=== PATIENT | female | born 1960 | race Two or more races ===

== ENCOUNTER 2017-02-14 08:18 | Inpatient (IN) | payer BC ==
[~2017-02-14] VITALS: Ht 149.9 cm; Wt 60.5 kg
[~2017-02-14 08:18] MED LIST: ALBU0.08 NEB; ATOR10TA15 PO; FOLI1TAB6 PO; GARL1CAP6 PO; MONT10TA4 PO; OMEGCAP PO
--- NOTE | 2017-02-14 08:27 | PD.OP ---
Operative Report Date of Surgery: Feb 14, 2017 Preoperative Diagnosis: (1) Intramural leiomyoma of uterus (2) Subserosal leiomyoma of uterus (3) Enlarged uterus (4) Pelvic and perineal pain Postoperative Diagnosis: (1) Intramural leiomyoma of uterus (2) Subserosal leiomyoma of uterus (3) Enlarged uterus (4) Pelvic and perineal pain (5) Severe endometriosis (6) Intestinal adhesions (7) Pelvic peritoneal adhesions, female Procedure: 1. attempted laparoscopic supracervical hysterectomy -- had to change to open procedure due to frozen pelvis 2. supracervical abdominal hysterectomy 3. bilateral salpingo-oophorectomy 4. extensive lysis of adhesions Anesthesia: General Surgeon: Christa Burkett International Account Executive(s): OR staff Operation and Findings: IVF: 3500 ml of LR + IV antibiotics given prior to surgery + 2 Units of PRBCs + Methylene blue given during surgery UO: 800 ml EBL: 500 ml Findings: 1. 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 extensive adhesions involving omentum and anterior abdominal wall 3. extensive adhesions involving the bowel and the pelvic organs 4. both adnexa were embedded in pelvic side fried Specimens: uterus, tubes, ovaries Complications: left ureter was punctured with needle, Urologist was called to evaluate it, stent was recommend to prevent any complications Condition: stable Description of the procedure: The risks, benefits and alternatives of the procedure were discussed with the patient. Informed consent was obtained after questions were answered. The patient was then transferred to the operating room with her IV running. Antibiotics were given prior to surgery. She was placed in the supine position and was given general anesthesia without difficulties or complications. The patient was placed in the dorsal lithotomy position and was prepped and draped in the usual sterile fashion . Attention was then turned to the patient's pelvis. A bivalve speculum was placed inside the patient's vagina. The anterior aspect of the cervix was grasped with a single tooth tenaculum for manipulation. The cervix was carefully dilated and electrocauterized with the Bovie. A uterine manipulator was placed inside the uterus for manipulation. The rest of the instruments were removed from the patient's vagina. The surgeon changed gloves and attention was then turned to the patient's abdomen. Next, a vertical umbilical incision was made with the scalpel. A 5mm trocar was placed inside the abdomen while observing with the camera. Extensive adhesions were noted in the patient's abdomen. Her pelvis was noted to be "frozen" due to overwhelming adhesions from suspected endometriosis and her previous section. The decision was then made to proceed with an abdominal hysterectomy.The uterine manipulator was removed and the patient's position was changed to supine. A Pfannenstiel skin incision was then made with the scalpel. The incision was extended to the fascia with the Bovie. The fascia was incised in the midline with a scalpel. The fascial incision was then extended sharply with Long scissors. Next, the rectus muscles were in the midline with a hemostat and the peritoneum was identified and entered bluntly. Adhesions involving the omentum and abdominal wall needed to be cut in order to enter the abdomen. A [place] retractor was placed inside the patient's abdomen. Care was taken to place moist laps under the blades. Extensive lysis of adhesions was necessary in order to create tissue planes and be able to introduce blades. More lysis of adhesions was needed in order to continue with the procedure. The bowel was carefully packed away with moist laparotomy sponges. A bladder blade was also introduced inside the pelvic cavity. The right round ligament was identified, doubly clamped, transected and suture ligated with 0-Vicryl. Good hemostasis was noted. The right fallopian tube and ovary were noted to be embedded in the right pelvic side wall. After cutting the adhesions, the IP was clamped, cut and suture ligated. Hemostasis was achieved. The left uterine-ovarian ligament was then doubly clamped, transected and suture ligated with 0-Vicryl times two. After extensive lysis of adhesions, the tissues along the left and right lower uterine segment were serially doubly clamped, transected and suture ligated with 0-Vicryl times two. Good hemostasis was noted. The uterus was transected at the utero-cervical junction with the Bovie and was sent to pathology. The left adnexa was also embedded in the left pelvic side wall. More lysis of adhesions was needed in order to be able to doubly clamped, transect and ligate the left Infundibulopelvic ligament. At this time, the ureters were identified and noted to be away from the surgical sites. However, the left ureter was noted to have a needle puncture. Urology was intra-operatively consulted. Dr Collazo evaluated the left ureter and, after closing, he performed a cystoscopy and placed a stent in the left ureter in order to prevent any complications. Good hemostasis was noted at all surgical sites. However, throughout the surgery the adhesions cut oozed blood. It was then decided to give the patient 2 units of PRBCs because her blood pressure was low. The endocervix was electrocauterized using the Bovie. The edges of the cervical tissues and the peritoneum were stitched together with running, locked stitches of 0-Vicryl. Excellent hemostasis was noted at all the surgical sites and pedicles. Copious irrigation was done. Hemostatic powder was placed over the cervix and cul de sac. All the instruments were removed from the patient's pelvis and vagina. The instrument and the lap count were correct times three. The peritoneum was closed with running stitches of 2-0 Vicryl. The rectus muscles were reapproximated with running stitches of 0-Vicryl. The fascia was reapproximated with running stitches of 0-PDS. The subcutaneous tissues were copiously irrigated and reapproximated with one layer of running stitches using 2-0 Vicryl. The skin was reapproximated with running stitches of Monocryl on a curved needle. Mastisol and steri strips were placed over the incision. The patient was successfully extubated and taken to PACU in stable condition. Since the patient had to be open, arrangements were made with [facility] to admit the patient to [facility] for post op care. Note: I discussed surgical findings and surgical procedures with patient's family members. Their questions were answered. They verbalized understanding and agreement to the procedures done. Christa Burkett MD Feb 14, 2017 08:27
[2017-02-14] MEDS ORDERED: LACTATED RINGER'S 1000 ML IV PRN (08:45)
[2017-02-14] MEDS ORDERED: INSULIN HUMAN REGULAR 1,000 UNITS/10 ML VIAL SQ PRN (08:45)
[2017-02-14] MEDS ORDERED: CHLORHEXIDINE GLUCONATE 2 % 1 PACK (2 CLOTHS) TOPICAL PRN (08:45)
[2017-02-14] MEDS ORDERED: ceFAZolin 2 GM PREMIX 50 ML IV SCH (08:45)
[2017-02-14] MEDS ORDERED: METOPROLOL TARTRATE 25 MG TAB PO PRN (08:45)
[2017-02-14] MEDS ORDERED: SODIUM CHLORID 0.9% 500 ML IV PRN (08:45)
[2017-02-14] MEDS: POVIDONE IODINE 5% (ANTISEPSIS KIT) 4 APPLICATIONS EACH NARE PRN ×2 (08:47→09:32)
[2017-02-14] MEDS ORDERED: VENTAER INH (08:58)
[2017-02-14 09:02] VITALS: BP 124/79; PULSE 87; RESP 16; TEMP 98.1; O2SAT 100
[2017-02-14] MEDS ORDERED: oxyCODONE/ACETAMINOPHEN 5 MG/325 MG TAB PO PRN ×2 (10:00→19:30)
[2017-02-14] MEDS ORDERED: PHENYLEPH/NS 1000 MCG/10 ML SYR IV ONE (12:15)
[2017-02-14] MEDS ORDERED: PROPOFOL 200 MG/20 ML AMP IV ONE (12:15)
[2017-02-14] MEDS ORDERED: ONDANSETRON HCL 4 MG/2 ML VIAL IV PUSH ONE (12:15)
[2017-02-14] MEDS ORDERED: ACETAMINOPHEN 1000 MG/100 ML VIAL IV ONE (14:07)
[2017-02-14] MEDS ORDERED: fentaNYL CITRATE 250 MCG/5 ML AMP ONE ×2 (14:07→16:55)
[2017-02-14] MEDS ORDERED: MIDAZOLAM HCL 2 MG/2 ML VIAL ONE (14:07)
[2017-02-14] MEDS ORDERED: BUPIVACAINE HCL PF 0.5% 30 ML VIAL ONE (14:07)
[2017-02-14] MEDS ORDERED: SODIUM CHLORIDE 0.9% 20 ML VIAL ONE (14:07)
[2017-02-14] MEDS ORDERED: VASOPRESSIN INJ 20 UNITS/ML VIAL ONE (14:07)
[2017-02-14] MEDS ORDERED: FAMOTIDINE 20 MG/2 ML VIAL ONE (14:08)
[2017-02-14] MEDS ORDERED: RESP: ALBUTEROL 2.5 MG/3 ML NEB (SCH) ONE (14:12)
[2017-02-14] MEDS ORDERED: HYDROmorphone HCL PF 2 MG/ML VIAL ONE (14:57)
[2017-02-14] MEDS ORDERED: SUGAMMADEX SODIUM 200 MG/2 ML VIAL IV PUSH ONE ×2 (14:57)
[2017-02-14] MEDS ORDERED: METHYLENE BLUE 10 MG/ML VIAL OTHER ONE (15:13)
[2017-02-14] MEDS ORDERED: MICROFIBRILLAR COLLAGEN HEMOSTAT 1 GM PKT ONE (16:06)
[2017-02-14 17:41] LABS: REVIEW FLAG FINAL
[2017-02-14] MEDS ORDERED: HYDROmorphone HCL PF 2 MG/ML VIAL IV PRN (19:30)
[2017-02-14] MEDS ORDERED: SODIUM CHLORIDE 0.9% FLUSH 10 ML FLUSH IV FLUSH PRN (19:30)
[2017-02-14] MEDS ORDERED: DOCUSATE SODIUM 100 MG CAP PO PRN (19:30)
[2017-02-14] MEDS ORDERED: diphenhydrAMINE HCL 50 MG/ML VIAL IV PRN (19:30)
[2017-02-14] MEDS ORDERED: ZOLPIDEM TARTRATE 5 MG TAB PO PRN (19:30)
[2017-02-14] MEDS ORDERED: LORazepam 0.5 MG TAB PO PRN (19:30)
[2017-02-14] MEDS ORDERED: DO NOT ADM ANY ANTICOAGULANT DRUGS PRN (19:42)
--- NOTE | 2017-02-14 19:53 | PD.OP ---
Operative Report Date of Surgery: Feb 14, 2017 Preoperative Diagnosis: (1) Perforation of ureter Postoperative Diagnosis: (1) Perforation of ureter Procedure: Examination under anesthesia, cystoscopy and left ureteral stent placement Anesthesia: General Surgeon: Nas Collazo Security Incident Response Specialist(s): None Operation and Findings: Consulted intraoperatively to assess viability of the patient's left ureter that was inadvertently perforated with a suture needle during her supracervical hysterectomy procedure. Urologic procedures in detail: Upon being summoned to the operating room suite I scrubbed and evaluated the patient's left distal ureter after it was inadvertently perforated with a suture needle during her supracervical hysterectomy. The ureter itself appeared intact and was peristalsing well. There was a small amount of urinary drainage at the needle perforation site. In an effort to prevent subsequent urinoma formation, I proceeded with cystoscopic evaluation and left ureteral stent placement as follows. Rigid cystoscopy was performed utilizing the 30 lens and 22 Iraqi sheath. Both right and left ureteral orifices were in correct anatomic position effluxing clear yellow urine. The bladder itself appeared intact without any pathology. Next proceeded with passing a flexible 0.035 guidewire up the patient's left ureter and subsequently passed a 4.8 Iraqi 22 cm double-J stent without difficulty. Once the stent was placed, the trailing string was removed. A 16 Iraqi silicone Kiser was then placed and connected to gravity drainage. The patient will require to have the stent left indwelling for at least 1 week and arrangements will be made for the patient to follow up with me in the office for subsequent stent removal ([id number]). This completes urologic surgery portion of combined procedures on this patient. Nas Collazo MD Feb 14, 2017 19:53
[2017-02-14] MEDS: D5-1/2 NS + KCL 20 MEQ INJ 1,000 ML IV SCH (20:25)
[2017-02-14] MEDS: ACETAMINOPHEN 1000 MG/100 ML VIAL IV SCH (20:29)
[2017-02-14] MEDS: SODIUM CHLORIDE 0.9% FLUSH 10 ML FLUSH IV FLUSH SCH (20:31)
[2017-02-14] MEDS: ONDANSETRON HCL 4 MG/2 ML VIAL IV PUSH PRN (20:48)
[2017-02-14 21:35] VITALS: BP 118/65; PULSE 60; RESP 19; TEMP 97.1; O2SAT 100
[2017-02-14] MEDS: oxyCODONE/ACETAMINOPHEN 10 MG/325 MG TAB PO PRN (21:57)
[2017-02-14] MEDS: METOCLOPRAMIDE HCL 10 MG/2 ML VIAL IV PUSH PRN (23:44)
[2017-02-15] VITALS (7 sets, daily range): BP systolic 110–121; BP diastolic 57–98; PULSE 58–105; RESP 18–20; TEMP 96.9–98.2; O2SAT 95–100
[2017-02-15] MEDS: ACETAMINOPHEN 1000 MG/100 ML VIAL IV SCH ×3 (01:05→13:25)
[2017-02-15] MEDS: D5-1/2 NS + KCL 20 MEQ INJ 1,000 ML IV SCH (03:28)
[2017-02-15] MEDS: SODIUM CHLORIDE 0.9% FLUSH 10 ML FLUSH IV FLUSH SCH ×2 (08:20→20:31)
[2017-02-15] MEDS: ONDANSETRON HCL 4 MG/2 ML VIAL IV PUSH PRN (08:20)
[2017-02-15] MEDS: oxyCODONE/ACETAMINOPHEN 10 MG/325 MG TAB PO PRN (08:20)
[2017-02-15] MEDS: METOCLOPRAMIDE HCL 10 MG/2 ML VIAL IV PUSH PRN ×2 (08:35→13:26)
--- NOTE | 2017-02-15 09:01 | HHI.PR ---
Subjective Remarks Doing well, pain is well controlled. Continues to have nausea and occasional vomiting. Is requesting to go home "today because I am too uncomfortable in this bed" Objective Vital Signs Vital Signs Date Time Temp Pulse Resp B/P Pulse Ox O2 Delivery O2 Flow Rate FiO2 02/15/17 04:00 97.6 69 19 113/62 99 02/15/17 01:42 16 02/15/17 01:42 16 02/15/17 00:00 97.0 58 18 120/60 100 02/14/17 22:57 16 02/14/17 21:35 97.1 60 19 118/65 100 02/14/17 21:00 97.5 64 12 102/63 100 Nasal Cannula 2 02/14/17 20:45 74 13 111/62 100 Nasal Cannula 2 02/14/17 20:30 67 13 120/64 98 Nasal Cannula 3 02/14/17 20:15 80 12 134/63 99 Nasal Cannula 3 02/14/17 20:00 80 16 155/66 100 Nasal Cannula 3 02/14/17 19:45 62 16 100/65 92 Simple Mask 10 02/14/17 19:42 97.5 61 10 97/58 94 Simple Mask 15 02/14/17 09:02 98.1 87 16 124/79 100 I/O 02/14/17 02/14/17 02/14/17 02/15/17 02/15/17 02/15/17 06:59 14:59 22:59 06:59 14:59 22:59 Intake Total 4600 ml 1115 ml Output Total 2450 ml 550 ml Balance 2150 ml 565 ml Intake Oral 0 ml 240 ml IV Total 600 ml 875 ml Packed Cells 500 ml Other 3500 ml Output Urine Total 600 ml 550 ml Estimated Blood Loss 500 ml Other 1350 ml # Sanitary Pads 1 Pads Result Diagram: 02/14/17 1722 Other Results CBC Diagram 02/15/17 13:21 Vital Signs Date Time Temp Pulse Resp B/P Pulse Ox O2 Delivery O2 Flow Rate FiO2 02/15/17 04:00 97.6 69 19 113/62 99 02/15/17 01:42 16 02/15/17 01:42 16 02/15/17 00:00 97.0 58 18 120/60 100 02/14/17 22:57 16 02/14/17 21:35 97.1 60 19 118/65 100 02/14/17 21:00 97.5 64 12 102/63 100 Nasal Cannula 2 02/14/17 20:45 74 13 111/62 100 Nasal Cannula 2 02/14/17 20:30 67 13 120/64 98 Nasal Cannula 3 02/14/17 20:15 80 12 134/63 99 Nasal Cannula 3 02/14/17 20:00 80 16 155/66 100 Nasal Cannula 3 02/14/17 19:45 62 16 100/65 92 Simple Mask 10 02/14/17 19:42 97.5 61 10 97/58 94 Simple Mask 15 02/14/17 09:02 98.1 87 16 124/79 100 Objective Remarks Chest is clear, regular rate and rhythm. Abdomen is soft and non-distended. Incision is clean and dry. Ext no CCE. A/P Assessment and Plan Post Op Day 1 Doing overall well. Discussed the need to stay in hospital until she is able to eat without vomiting. Discussed with patient, her and daughter the surgical findings and the procedures done including the intra operative consultation to urology. Discussed the need to see urologist in 1-2 weeks. Patient and family verbalized understanding and agreement to the procedures done and the plan of care. Christa Burkett MD Feb 15, 2017 09:01
[2017-02-15] MEDS ORDERED: LACTATED RINGER'S 1000 ML INJ 1,000 ML IV ONE ×2 (09:30→13:15)
[2017-02-15] MEDS: ONDANSETRON HCL 4 MG/2 ML VIAL IV PUSH SCH ×4 (11:07→23:15)
[2017-02-15] MEDS: IBUPROFEN 600 MG TAB PO PRN (13:31)
[2017-02-15] MEDS: LACTATED RINGER'S 1000 ML INJ 1,000 ML IV SCH ×3 (13:31→23:14)
[2017-02-15 13:49] LABS: AUTOMATED NEUTROPHIL # 15.1 TH/MM3 (1.8-7.7); BASOPHIL % 0.1 % (0.0-2.0); HEMATOCRIT 37.9 % (35.0-46.0); HEMO FLAGS DIFF FINAL; LYMPH % 8.1 % (9.0-44.0); LYMPHOCYTE # 1.4 TH/MM3 (1.0-4.8); MEAN CELL VOLUME 92.4 FL (80.0-100.0); MEAN CORPUSCULAR HEMOGLOBIN 30.5 PG (27.0-34.0); MONO % 6.3 % (0.0-8.0); NEUT % 85.5 % (16.0-70.0); PLATELET COUNT 200 TH/MM3 (150-450); WHITE BLOOD COUNT 17.6 TH/MM3 (4.0-11.0)
[2017-02-15 14:26] LABS: POTASSIUM 4.2 MEQ/L (3.5-5.1)
[2017-02-15] MEDS: PANTOPRAZOLE SODIUM 40 MG VIAL IV PUSH SCH (20:30)
[2017-02-16] VITALS: BP 106/65; PULSE 97; RESP 18; TEMP 99.2; O2SAT 100
[2017-02-16] MEDS: IBUPROFEN 600 MG TAB PO PRN (02:38)
[2017-02-16 04:00] VITALS: BP 118/60; PULSE 101; RESP 18; TEMP 98.4; O2SAT 100
[2017-02-16] MEDS: LACTATED RINGER'S 1000 ML INJ 1,000 ML IV SCH ×2 (04:12→08:39)
[2017-02-16] MEDS: ONDANSETRON HCL 4 MG/2 ML VIAL IV PUSH SCH ×3 (04:13→13:00)
[2017-02-16 06:50] LABS: AUTOMATED NEUTROPHIL # 11.9 TH/MM3 (1.8-7.7); BASOPHIL % 0.2 % (0.0-2.0); EOSINOPHIL % 0.3 % (0.0-4.0); HEMATOCRIT 33.7 % (35.0-46.0); HEMO FLAGS DIFF FINAL; LYMPH % 11.3 % (9.0-44.0); LYMPHOCYTE # 1.6 TH/MM3 (1.0-4.8); MEAN CELL VOLUME 92.1 FL (80.0-100.0); MEAN CORPUSCULAR HEMOGLOBIN 31.4 PG (27.0-34.0); MEAN CORPUSCULAR HGB CONC 34.1 % (32.0-36.0); MONO % 6.8 % (0.0-8.0); NEUT % 81.4 % (16.0-70.0); PLATELET COUNT 184 TH/MM3 (150-450); RED BLOOD COUNT 3.66 MIL/MM3 (4.00-5.30); RED CELL DISTRIBUTION WIDTH 15.5 % (11.6-17.2); WHITE BLOOD COUNT 14.6 TH/MM3 (4.0-11.0)
[2017-02-16 07:11] LABS: BICARBONATE 26.6 MEQ/L (21.0-32.0); POTASSIUM 3.9 MEQ/L (3.5-5.1)
[2017-02-16 07:50] VITALS: BP 126/86; PULSE 91; RESP 20; TEMP 97.5; O2SAT 100
[2017-02-16] MEDS: PANTOPRAZOLE SODIUM 40 MG VIAL IV PUSH SCH (08:35)
[2017-02-16] MEDS: SODIUM CHLORIDE 0.9% FLUSH 10 ML FLUSH IV FLUSH SCH (08:39)
[2017-02-16 08:42] VITALS: O2SAT 98
--- NOTE | 2017-02-16 08:43 | HHI.PR ---
Subjective Remarks Doing well, pain is well controlled, eating well. Urine from Kiser is now light pink in color. Objective Vital Signs Vital Signs Date Time Temp Pulse Resp B/P Pulse Ox O2 Delivery O2 Flow Rate FiO2 02/16/17 04:00 98.4 101 18 118/60 100 02/16/17 03:38 16 02/16/17 00:00 99.2 97 18 106/65 100 02/15/17 20:00 98.2 105 18 115/64 100 02/15/17 15:30 98.0 95 20 110/61 100 02/15/17 11:30 96.9 82 20 119/57 98 02/15/17 10:58 95 21 I/O 02/15/17 02/15/17 02/15/17 02/16/17 02/16/17 02/16/17 07:00 15:00 23:00 07:00 15:00 23:00 Intake Total 1115 ml 562 ml 480 ml 240 ml Output Total 550 ml 500 ml 1500 ml 1000 ml Balance 565 ml 62 ml -1020 ml -760 ml Intake Oral 240 ml 562 ml 480 ml 240 ml IV Total 875 ml Output Urine Total 550 ml 500 ml 1500 ml 1000 ml # Bowel Movements 0 # Sanitary Pads 1 Pads Result Diagram: 02/16/1761802/16/17618 Objective Remarks Chest is clear, regular rate and rhythm. Abdomen is soft and non-distended. Incision is clean and dry. Ext no CCE. A/P Assessment and Plan Post Op Day 2 Patient is tolerating regular diet well She has requested to be discharged to home Electronic Rxs will be sent to her pharmacy in [place] for Zofran since patient continues to have occasional nausea Will d/c Kiser catheter, give her one more dose of IV antibiotics prior to d/c home this afternoon Christa Burkett MD Feb 16, 2017 08:43 Christa Burkett MD Feb 16, 2017 08:43
--- NOTE | 2017-02-16 09:42 | HHI.DS ---
Discharge Summary Admission Date Feb 14, 2017 at 19:36 Discharge Date: Feb 16, 2017 Admitting Diagnosis Pelvic pain, fibroids. Procedures Abdominal supracervical hysterectomy with extensive lysis of adhesions Brief History The patient's post op recovery was uneventful. Had some difficulty with nausea and vomiting which resolved with Zofran. CBC/BMP: 02/16/17 0619 02/16/17 0619 Significant Findings Laboratory Tests Test 02/14/17 02/15/17 02/16/17 17:22 13:21 06:19 Hemoglobin 7.3 GM/DL 11.5 GM/DL (11.6-15.3) (11.6-15.3) Hematocrit 21.0 % 33.7 % (35.0-46.0) (35.0-46.0) White Blood Count 17.6 TH/MM3 14.6 TH/MM3 (4.0-11.0) (4.0-11.0) Neutrophils (%) (Auto) 85.5 % 81.4 % (16.0-70.0) (16.0-70.0) Lymphocytes (%) (Auto) 8.1 % (9.0-44.0) Neutrophils # (Auto) 15.1 TH/MM3 11.9 TH/MM3 (1.8-7.7) (1.8-7.7) Monocytes # (Auto) 1.1 TH/MM3 1.0 TH/MM3 (0-0.9) (0-0.9) Estimat Glomerular Filtration 69 ML/MIN (>89) 72 ML/MIN (>89) Rate Red Blood Count 3.66 MIL/MM3 (4.00-5.30) Chloride Level 109 MEQ/L (98-107) Random Glucose 123 MG/DL (74-106) Calcium Level 8.2 MG/DL (8.5-10.1) PE at Discharge Lungs clear Abdomen with clean / intact incisions LE WNL Hospital Course Patient did well Pt Condition on Discharge: Stable Discharge Disposition: Discharge Home Discharge Instructions DIET: Follow Instructions for: As Tolerated, No Restrictions Additional Diet Instructions: LOTS of water Activities you can perform: Shower Only-No Bath, Pelvic Rest, Continue Bedrest Activities to Avoid: Lifting/Bending, Weight Bearing, Prolonged Standing, Bathing, Driving, Sexual Activity Other Activity Instructions: Minimal physical activity. Needs to rest in bed for at least 1 week. OK to shower and walk inside the house a few times / day for about 10-15 minutes Christa Burkett MD Feb 16, 2017 09:42
[2017-02-16 11:50] VITALS: BP 127/73; PULSE 92; RESP 20; TEMP 99.4
== END 2017-02-16 14:52 | disposition home or self-care (01) | DRG 742 ==
LOC: HSDC 08:18 → HSDI 19:36 → HOCA 21:17
PROVIDERS: ADMIT Obstetrics & Gynecology; ATTEND Obstetrics & Gynecology
PROC: 0DNS0ZZ (ICD-10-PCS; 2017-02-14)
PROC: 0DNE0ZZ Release Large Intestine, Open Approach (ICD-10-PCS; 2017-02-14)
PROC: 0UN20ZZ Release Bilateral Ovaries, Open Approach (ICD-10-PCS; 2017-02-14)
PROC: 0T778DZ Dilation of Left Ureter with Intraluminal Device, Via Natural or Artificial Opening Endoscopic (ICD-10-PCS; 2017-02-14)
PROC: 30233N1 Transfusion of Nonautologous Red Blood Cells into Peripheral Vein, Percutaneous Approach (ICD-10-PCS; 2017-02-14)
PROC: 0UT90ZZ Resection of Uterus, Open Approach (ICD-10-PCS; principal; 2017-02-14 14:36)
PROC: 0UT20ZZ Resection of Bilateral Ovaries, Open Approach (ICD-10-PCS; 2017-02-14 14:36)
PROC: 0UT70ZZ Resection of Bilateral Fallopian Tubes, Open Approach (ICD-10-PCS; 2017-02-14 14:36)
DX: D25.1 Intramural leiomyoma of uterus (principal); N99.71 Accidental puncture and laceration of a genitourinary system organ or structure during a genitourinary system procedure; D25.2 Subserosal leiomyoma of uterus; N73.6 Female pelvic peritoneal adhesions (postinfective); N80.9 Endometriosis, unspecified; Z53.31 Laparoscopic surgical procedure converted to open procedure; Y83.6 Removal of other organ (partial) (total) as the cause of abnormal reaction of the patient, or of later complication, without mention of misadventure at the time of the procedure; Y92.234 Operating room of hospital as the place of occurrence of the external cause; J45.909 Unspecified asthma, uncomplicated; E78.5 Hyperlipidemia, unspecified
CPT/HCPCS: 36430; 80048; 82565; 84132; 85014; 85018; 85025; 86850; 86900; 86901; 86920; 88305; 88307; 94150; 94664; C1769; C2617; C9113; J0131; J0690; J1170; J2250; J2370; J2405; J2765; J3010; J3480; J7120; J7613; P9016